=== PATIENT | female | born 1945 | race Caucasian/White ===

== ENCOUNTER 2016-12-10 16:27 | Observation (INO) | payer MEDICARE ==
[~2016-12-10] VITALS: Ht 167.6 cm; Wt 114.6 kg
[~2016-12-10 16:27] MED LIST: HCTZ 25MG TAB25 MG PO; IRON325 MG PO; LEVAQUIN 5500 MG/TA1 PO; LOTENSIN40 MG PO; LUTEIN 15 MG-0.1 SGL PO; MULTIPLE VITAMI1 CAP PO; PREDNISONE20 MG PO; PROAIR HFA0.09 MG/AC IH; PROZAC 20MG20 MG PO; WELLBUTRIN SR150 M1 PO
[2016-12-10 17:17] LABS: BASO % 0.2 % (0.0-2.0); EOS % 0.4 % (0-4.0); GRAN # 8.1 (1.4-6.5); GRAN % 76.5 % (42.2-75.2); HEMATOCRIT 33.9 % (37.0-47.0); HEMOGLOBIN 10.9 g/dl (12.5-16.0); LYMPH # 1.7 (1.2-3.4); LYMPH % 15.8 % (20.0-51.0); MEAN CELL VOLUME 87 fl (80.0-100.0); MEAN CORPUSCULAR HEMOGLOBIN 28 pg (27.0-31.0); MEAN CORPUSCULAR HGB CONC 32 g/dl (33.0-37.0); MEAN PLATELET VOLUME 9.7 fl (7.4-10.4); MONO # 0.7 (0.1-0.6); MONO % 6.4 % (1.7-9.3); PLATELET COUNT 321 K/mm3 (130-400); RED BLOOD COUNT 3.91 M/mm3 (4.10-5.30); REDCELL DISTRIBUTION WIDTH-CV 13.3 % (11.5-14.5); WHITE BLOOD COUNT 10.5 K/mm3 (4.8-10.8)
[2016-12-10 17:27] LABS: ADJUSTED CALCIUM 9.1 mg/dL (8.4-10.2); ALBUMIN 4.3 gm/dL (3.5-5.0); BILIRUBIN,TOTAL 0.6 mg/dL (0.0-1.0); CALCIUM 9.3 mg/dL (8.4-10.2); CREATININE, serum 0.86 mg/dL (0.52-1.25); MAGNESIUM 1.9 mg/dL (1.6-2.3); POTASSIUM 3.8 mmol/L (3.4-5.0); TOTAL PROTEIN 7.6 gm/dL (6.4-8.2)
[2016-12-10] MEDS ORDERED: PROZAC40 MG PO (17:37)
[2016-12-10] MEDS ORDERED: PREDNISONE10 MG PO (17:42)
[2016-12-10] MEDS ORDERED: CIPRO 500MG TA500 MG PO (17:42)
[2016-12-10] MEDS ORDERED: STOOL SOFTENER100 M2 PO (17:43)
[2016-12-10] MEDS ORDERED: MOBIC15 MG PO (17:43)
[2016-12-10] MEDS ORDERED: HCTZ 25MG TAB25 MG PO (17:44)
[2016-12-10 17:48] LABS: TROPONIN-I 0.131 ng/mL (0.000-0.034)
[2016-12-10 18:04] LABS: PH 5 (5-8); SQUAMOUS EPITHELIAL 0-2 /hpf; URINE APPEARANCE Clear; URINE BACTERIA Rare /hpf; URINE BILIRUBIN Negative (NEGATIVE); URINE BLOOD Negative (NEGATIVE); URINE COLOR Yellow; URINE GLUCOSE Negative (NEGATIVE); URINE KETONE Negative (NEGATIVE); URINE RBC 0-2 /hpf; URINE UROBILINOGEN Negative (NEGATIVE); URINE WBC 0-2 /hpf
[2016-12-10 18:25] LABS: ARTERIAL BLD GAS TCO2 CT 27.8; ARTERIAL BLOOD GAS BASE EXCESS 2.7 (-2-2); ARTERIAL BLOOD GAS HCO3 26.7 meq/L (22-26); ARTERIAL BLOOD GAS PO2 96.9 mmHg (80-100); ARTERIAL BLOOD GAS pH 7.46 (7.35-7.45); OXYHEMOGLOBIN 96.4 %
[2016-12-10 18:26] LABS: ALLEN TEST YES; ALLENS TEST RESULT PASS; ATS? YES
[2016-12-10 18:44] VITALS: BP 133/67; PULSE 94; TEMP 97.8
[2016-12-10 19:07] LABS: INR 0.9 (0.8-3.0); PROTHROMBIN TIME 10.3 SECONDS (9.7-12.8)
[2016-12-10 19:09] LABS: PARTIAL THROMBOPLASTIN TIME 29.7 SECONDS (26.0-37.0)
[2016-12-10 19:47] VITALS: BP 138/58; PULSE 91; TEMP 98.7
[2016-12-10 22:29] VITALS: BP 142/66; PULSE 80; TEMP 98.2
[2016-12-11] VITALS (20 sets, daily range): BP systolic 105–156; BP diastolic 62–89; PULSE 69–99; TEMP 97.6–98.5
[2016-12-12] VITALS: BP 136/63; PULSE 74; TEMP 98.5
[2016-12-12 00:25] VITALS: BP 136/63; PULSE 74; TEMP 98.5
[2016-12-12 04:30] VITALS: BP 136/63; PULSE 74; TEMP 98.5
[2016-12-12 07:49] VITALS: BP 139/59; PULSE 92; TEMP 97.5
[2016-12-12 08:27] VITALS: BP 139/59; PULSE 92; TEMP 97.5
[2016-12-13 15:16] LABS: CK total - for Isoenzymes 134 U/L (38 - 176)
== END 2016-12-12 11:16 | disposition home or self-care (01) ==
LOC: COL.ER 16:27 → MEDICAL 18:13
PROVIDERS: Emergency Medicine
DX: J44.1 Chronic obstructive pulmonary disease with (acute) exacerbation (principal); R79.89 Other specified abnormal findings of blood chemistry; F41.9 Anxiety disorder, unspecified; F17.210 Nicotine dependence, cigarettes, uncomplicated; Z99.81 Dependence on supplemental oxygen; Z96.652 Presence of left artificial knee joint; Z66 Do not resuscitate; Z82.49 Family history of ischemic heart disease and other diseases of the circulatory system
CPT/HCPCS: C1760; C1894; G0378; J2930; J3010; J7030; Q9967

== ENCOUNTER 2019-05-11 18:24 | Inpatient (IN) | payer MEDICARE ==
[~2019-05-11] VITALS: Ht 167.6 cm; Wt 97.6 kg
[~2019-05-11 18:24] MED LIST changes: +CIPRO 500MG TA500 MG PO; +MOBIC15 MG PO; +PREDNISONE10 MG PO; +PROZAC40 MG PO; +STOOL SOFTENER100 M2 PO
[2019-05-11 19:01] LABS: BASO % 0.3 % (0.0-2.0); EOS # 0.3 (0.0-0.7); EOS % 2.4 % (0-4.0); GRAN # 8.7 (1.4-6.5); GRAN % 74.2 % (42.2-75.2); HEMATOCRIT 39.7 % (37.0-47.0); HEMOGLOBIN 11.9 g/dl (12.5-16.0); LYMPH % 17.1 % (20.0-51.0); MEAN CELL VOLUME 90 fl (80.0-100.0); MEAN CORPUSCULAR HEMOGLOBIN 27 pg (27.0-31.0); MEAN CORPUSCULAR HGB CONC 30 g/dl (33.0-37.0); MEAN PLATELET VOLUME 9.1 fl (7.4-10.4); MONO # 0.6 (0.1-0.6); MONO % 5.1 % (1.7-9.3); PLATELET COUNT 433 K/mm3 (130-400); RED BLOOD COUNT 4.41 M/mm3 (4.10-5.30); REDCELL DISTRIBUTION WIDTH-CV 13.2 % (11.5-14.5)
[2019-05-11 19:13] LABS: ALANINE AMINOTRANSFERASE 15 U/L (9-52); ALBUMIN 4.1 gm/dL (3.5-5.0); ALKALINE PHOSPHATASE 118 U/L (50-136); ANION GAP 9 mmol/L (7-16); AST,SGOT 29 U/L (15-37); BILIRUBIN,TOTAL 0.4 mg/dL (0.0-1.0); BLOOD UREA NITROGEN 12 mg/dL (7-17); CARBON DIOXIDE 28 mmol/L (22-30); CHLORIDE 101 mmol/L (98-107); CREATININE, serum 0.66 (0.52-1.25); GLUCOSE 138 mg/dL (74-106); POTASSIUM 3.7 mmol/L (3.4-5.0); SODIUM 138 mmol/L (137-145); TOTAL PROTEIN 7.5 gm/dL (6.4-8.2)
[2019-05-11 19:29] LABS: TROPONIN-I < 0.012 ng/mL (0.000-0.035)
--- NOTE | 2019-05-11 23:28 | NUR ---
PT was transported via ER bed accompanied by ERNESTO Valderrama. PT ambulated to unit bed with no mobility issues, very SOA after moving. Wall oxygen connected and placed on 4L NC after disconnecting from O2 tank. PT sitting on side of bed, catching breath. Able to speak in full sentences between breathes. Oriented to POC for the evening, room, and unit policies.
[2019-05-11 23:59] VITALS: O2SAT 92
[2019-05-12] VITALS (622 sets, daily range): BP systolic 123–149; BP diastolic 56–96; PULSE 77–99; TEMP 98–98.4; O2SAT 55–100
[2019-05-12] MEDS ORDERED: ATROVENT I0.2 MG/1 M IH (00:07)
[2019-05-12] MEDS ORDERED: MELATONIN5 M1 PO (00:08)
[2019-05-12 07:03] LABS: BASO % 0.1 % (0.0-2.0); GRAN # 6.4 (1.4-6.5); GRAN % 89.8 % (42.2-75.2); HEMOGLOBIN 10.5 g/dl (12.5-16.0); LYMPH # 0.6 (1.2-3.4); LYMPH % 8.8 % (20.0-51.0); MEAN CELL VOLUME 89 fl (80.0-100.0); MEAN CORPUSCULAR HEMOGLOBIN 27 pg (27.0-31.0); MEAN CORPUSCULAR HGB CONC 31 g/dl (33.0-37.0); MEAN PLATELET VOLUME 9.6 fl (7.4-10.4); MONO % 0.6 % (1.7-9.3); PLATELET COUNT 359 K/mm3 (130-400); RED BLOOD COUNT 3.88 M/mm3 (4.10-5.30); REDCELL DISTRIBUTION WIDTH-CV 13.3 % (11.5-14.5)
[2019-05-12 07:05] LABS: HEMATOCRIT 34.4 % (37.0-47.0)
[2019-05-12 07:06] LABS: CALCIUM 8.8 mg/dL (8.4-10.2); CREATININE, serum 0.6 (0.52-1.25); MAGNESIUM 2.1 mg/dL (1.6-2.3)
--- NOTE | 2019-05-12 07:10 | NUR ---
Bedside report given to ERNESTO Lucas.
--- NOTE | 2019-05-12 09:38 | NUR ---
MD Osbaldo in room
--- NOTE | 2019-05-12 13:36 | NUR ---
Attempted to call report - staff unavailable at this time
--- NOTE | 2019-05-12 14:25 | NUR ---
Pt transported to [place] [id number] at this time - recieved by ERNESTO Ambrocio - pt tolerated transfer well
--- NOTE | 2019-05-12 16:08 | NUR ---
IRAIDA met with the patient to discuss discharge plan. The patient lives in [place] with her , Moody. She states that her had a stroke thirteen years ago and that she is his primary caregiver. She states her niece and neighbor are checking in on him while she is here. She also states that her daughter, Nica Thomas (ph#[phone]), will be coming from [place] tomorrow to help out. She reports independence with ADLs and has a cane, walker, and wheelchair available if needed. She is on 4 liters of continuous oxygen from [facility]. The patient's PCP is Dr. Regan Araujo and she receives her medications from [facility]. She reports no difficulties obtaining her meds. She does states that she does not have prescription coverage and is okay with affording them, as long as she is prescribed generic brands. The patient was interested in completing a DPOA-HC. The patient designated her daughters: Tamera Simon (ph#[phone]) and Nica Thomas. IRAIDA and the patient's RN, Lolly, witnessed the patient's signature. The patient was provided with the original and some copies. SW placed a copy in the patient's chart. The patient plans to return home with her upon discharge. No additional needs at this time.
--- NOTE | 2019-05-12 16:42 | NUR ---
PATIENT CAME TO MEDICAL FROM ICU. PATIENT IS UP IN THE CHAIR AT THIS TIME WITH FRESH ICE WATER GIVEN TO HER. PATIENT HAS NO COMPLAINTS AT THIS TIME. THIS NURSE AND LATRICE WAS INTRDUCED TO THE PATIENT.
--- NOTE | 2019-05-12 17:32 | NUR ---
Patient transferred from ICU to room, was settled in recliner and watching TV. Denies pain. O2 is in place at 4L via NC. Offered water and accepted. Call light and personal items are within reach.
--- NOTE | 2019-05-12 17:33 | NUR ---
PATIENT IS RESTING IN BED AT THIS TIME WAITING FOR DINNER. ANTIBIOTIC GIVEN TO HER WITHOUT DIFFICULTY. NO COMPLAINTS AT THIS TIME.
--- NOTE | 2019-05-12 19:07 | NUR ---
Patient sitting up in recliner eating supper, call light and personal items are within reach.
--- NOTE | 2019-05-12 20:00 | NUR ---
Received report from ERNESTO Ross. Assessment complete. Alert and oriented. Denies any pain or discomfort. states SOB has improved. exp wheezing heard, on 4LO2 NC. INT to LAC and LW intact, flushed, dressing CDI. Tele monitor in place, leads checked. meds administered as ordered. Needs met. Call light within reach.
[2019-05-13 04:00] VITALS: BP 135/59; PULSE 94; TEMP 98.4
--- NOTE | 2019-05-13 05:11 | NUR ---
Pt had an uneventful night. Made no complaints. Meds administered. Needs met. Call light within reach.
--- NOTE | 2019-05-13 07:13 | NUR ---
Report given to ERNESTO Ross.
[2019-05-13 08:51] LABS: HEMOGLOBIN 10.4 g/dl (12.5-16.0); MEAN CELL VOLUME 89 fl (80.0-100.0); MEAN CORPUSCULAR HEMOGLOBIN 27 pg (27.0-31.0); MEAN CORPUSCULAR HGB CONC 31 g/dl (33.0-37.0); MEAN PLATELET VOLUME 9.6 fl (7.4-10.4); PLATELET COUNT 358 K/mm3 (130-400); RED BLOOD COUNT 3.82 M/mm3 (4.10-5.30); REDCELL DISTRIBUTION WIDTH-CV 13.5 % (11.5-14.5)
[2019-05-13 09:02] LABS: CALCIUM 9.4 mg/dL (8.4-10.2); CREATININE, serum 0.61 (0.52-1.25); POTASSIUM 3.7 mmol/L (3.4-5.0)
[2019-05-13 09:03] LABS: HEMATOCRIT 33.8 % (37.0-47.0)
[2019-05-13 09:08] VITALS: BP 128/68; PULSE 99; TEMP 97.7
--- NOTE | 2019-05-13 10:21 | NUR ---
Pt sitting in recliner upon entry, no C/O pain at this time, talkative, shift assessments complete, left Pt call light in reach.
[2019-05-13 11:36] LABS: BAND 4 % (0-10); LYMPHOCYTE 5 % (20.0-51.0); NEUTROPHILS 86 % (42.0-75.2); PLATELET ESTIMATE NORMAL (NORMAL)
[2019-05-13 12:15] VITALS: BP 150/75; PULSE 99; TEMP 98.5
[2019-05-13 16:00] VITALS: BP 172/88; PULSE 103; TEMP 98.2
--- NOTE | 2019-05-13 18:33 | NUR ---
Pt resting in the room today, no C/O pain, VS have remained stable.
[2019-05-13 19:05] VITALS: BP 170/73; PULSE 96; TEMP 98.1
[2019-05-13 23:26] VITALS: BP 149/60; PULSE 79; TEMP 97.9
[2019-05-14 04:08] VITALS: BP 170/68; PULSE 101; TEMP 98.2
--- NOTE | 2019-05-14 05:14 | NUR ---
Pt made no complaints. needs met. meds administered. call light within reach.
--- NOTE | 2019-05-14 06:53 | NUR ---
Report given to ERNESTO Ross.
[2019-05-14 07:50] VITALS: BP 167/77; PULSE 102; TEMP 97.9
--- NOTE | 2019-05-14 09:37 | NUR ---
Pt awake and alert this morning, co C/O pain at this time, shift assessment complete, left Pt call light in reach, bed in lowest position.
[2019-05-14] MEDS ORDERED: DOXYCYCLINE 10100 MG PO (11:27)
[2019-05-14] MEDS ORDERED: OMNICEF 300MG300 MG PO (11:28)
[2019-05-14] MEDS ORDERED: PREDNISONE20 MG PO (11:31)
[2019-05-14] MEDS ORDERED: HCTZ 25MG TAB25 MG PO (11:32)
[2019-05-14 12:41] VITALS: BP 147/75; PULSE 90; TEMP 97.8
--- NOTE | 2019-05-14 16:49 | NUR ---
Pt discharged to home, discussed discharge packet with Pt, answered all questions, escorted Pt to entrance, Pt left with spouse via private transportation.
== END 2019-05-14 16:50 | disposition home or self-care (01) | DRG 193 ==
LOC: COL.ER 18:24 → IMCU 20:34 → MEDICAL 05-12 14:22
PROVIDERS: Emergency Medicine; Physician Assistant; ADMIT Internal Medicine
DX: J18.9 Pneumonia, unspecified organism (principal); J96.21 Acute and chronic respiratory failure with hypoxia; J44.0 Chronic obstructive pulmonary disease with (acute) lower respiratory infection; J44.1 Chronic obstructive pulmonary disease with (acute) exacerbation; E66.9 Obesity, unspecified; F17.210 Nicotine dependence, cigarettes, uncomplicated; Z99.81 Dependence on supplemental oxygen; Z96.652 Presence of left artificial knee joint; Z20.828 Contact with and (suspected) exposure to other viral communicable diseases
CPT/HCPCS: 99223-AI; 99232-AI; A4216; J0456; J0692; J0696; J1650; J1956; J2920; J7030; J7050

== ENCOUNTER 2019-06-05 20:53 | Inpatient (IN) | payer MEDICARE ==
[~2019-06-05] VITALS: Ht 167.6 cm; Wt 105.0 kg
[2019-06-05] VITALS (28 sets, daily range): BP systolic 113; BP diastolic 86; PULSE 97; TEMP 97.5; O2SAT 94–98
[~2019-06-05 20:53] MED LIST changes: +ATROVENT I0.2 MG/1 M IH; +DOXYCYCLINE 10100 MG PO; +MELATONIN5 M1 PO; +OMNICEF 300MG300 MG PO
[2019-06-05 21:27] LABS: ARTERIAL BLD GAS O2 SATURATION 88.8 % (92-100); ARTERIAL BLD GAS TCO2 CT 29.7; ARTERIAL BLOOD GAS BASE EXCESS 0.2 (-2-2); ARTERIAL BLOOD GAS HCO3 27.9 meq/L (22-26); ARTERIAL BLOOD GAS PCO2 59.5 mmHg (35-45); ARTERIAL BLOOD GAS PO2 56.8 mmHg (80-100); ARTERIAL BLOOD GAS pH 7.29 (7.35-7.45)
[2019-06-05 21:47] LABS: BASO # 0.1 (0.0-0.2); BASO % 0.3 % (0.0-2.0); EOS # 0.2 (0.0-0.7); EOS % 0.8 % (0-4.0); GRAN # 15.6 (1.4-6.5); GRAN % 86.6 % (42.2-75.2); HEMATOCRIT 41.1 % (37.0-47.0); HEMOGLOBIN 12.4 g/dl (12.5-16.0); LYMPH # 1.3 (1.2-3.4); LYMPH % 7.2 % (20.0-51.0); MEAN CELL VOLUME 90 fl (80.0-100.0); MEAN CORPUSCULAR HEMOGLOBIN 27 pg (27.0-31.0); MEAN CORPUSCULAR HGB CONC 30 g/dl (33.0-37.0); MEAN PLATELET VOLUME 9.3 fl (7.4-10.4); MONO # 0.8 (0.1-0.6); MONO % 4.4 % (1.7-9.3); PLATELET COUNT 417 K/mm3 (130-400); RED BLOOD COUNT 4.57 M/mm3 (4.10-5.30)
[2019-06-05 21:54] LABS: BILIRUBIN,TOTAL 0.3 mg/dL (0.0-1.0); CALCIUM 8.7 mg/dL (8.4-10.2); CREATININE, serum 0.82 (0.52-1.25); POTASSIUM 3.6 mmol/L (3.4-5.0); TOTAL PROTEIN 7.2 gm/dL (6.4-8.2)
[2019-06-05 22:05] LABS: TROPONIN-I 0.031 ng/mL (0.000-0.035)
[2019-06-05] MEDS ORDERED: VASOTEC 10M10 MG/TAB PO (22:31)
[2019-06-05] MEDS ORDERED: PROZAC 20MG20 MG PO (22:36)
[2019-06-05] MEDS ORDERED: MULTI VITAMINS1 TAB PO (22:37)
--- NOTE | 2019-06-05 23:00 | NUR ---
Arrived to the unit via stretcher. Requesting to urinate. Assisted X 1 up to commode. Tolerated transfer well. Assited into bed and attached to all monitors. VS stable; Levophed currenlty on hold. Pt on BIPAP and tolerating well; will continue to monitor.
[2019-06-05 23:41] LABS: ARTERIAL BLD GAS O2 SATURATION 97.4 % (92-100); ARTERIAL BLD GAS TCO2 CT 27.7; ARTERIAL BLOOD GAS BASE EXCESS -1.9 (-2-2); ARTERIAL BLOOD GAS HCO3 25.9 meq/L (22-26); ARTERIAL BLOOD GAS PCO2 58.9 mmHg (35-45); ARTERIAL BLOOD GAS PO2 103.6 mmHg (80-100); ARTERIAL BLOOD GAS pH 7.26 (7.35-7.45)
[2019-06-06] VITALS (740 sets, daily range): BP systolic 94–128; BP diastolic 52–74; PULSE 70–86; TEMP 97.5–98.8; O2SAT 62–100
--- NOTE | 2019-06-06 00:06 | NUR ---
Dr. Roblero at bedside initiating intubation. Intubation finished at 0020. Started central line placement at 0022. Patient tolerated procedures well; Will continue to monitor.
[2019-06-06 01:50] LABS: CREATININE, serum 0.63 (0.52-1.25); POTASSIUM 3.8 mmol/L (3.4-5.0)
[2019-06-06 02:08] LABS: TROPONIN-I 0.117 ng/mL (0.000-0.035)
[2019-06-06 03:03] LABS: ARTERIAL BLD GAS O2 SATURATION 96.9 % (92-100); ARTERIAL BLD GAS TCO2 CT 27.3; ARTERIAL BLOOD GAS HCO3 25.7 meq/L (22-26); ARTERIAL BLOOD GAS PCO2 51.9 mmHg (35-45); ARTERIAL BLOOD GAS PO2 91.8 mmHg (80-100); ARTERIAL BLOOD GAS pH 7.31 (7.35-7.45)
--- NOTE | 2019-06-06 04:30 | NUR ---
Tolerating ventilator well. Patient awakens easily and able to follow commands appropriately. No concerns at this time.
--- NOTE | 2019-06-06 05:05 | NUR ---
Reported critical troponin to E-care nurse.
--- NOTE | 2019-06-06 05:15 | NUR ---
Received orders per Dr. Markham. See Emar.
[2019-06-06 05:37] LABS: MEAN CELL VOLUME 89 fl (80.0-100.0); MEAN CORPUSCULAR HGB CONC 31 g/dl (33.0-37.0); MEAN PLATELET VOLUME 9.2 fl (7.4-10.4); RED BLOOD COUNT 3.42 M/mm3 (4.10-5.30); REDCELL DISTRIBUTION WIDTH-CV 14.2 % (11.5-14.5)
[2019-06-06 05:37] LABS: ARTERIAL BLD GAS O2 SATURATION 93.7 % (92-100); ARTERIAL BLOOD GAS BASE EXCESS -1.5 (-2-2); ARTERIAL BLOOD GAS HCO3 24.5 meq/L (22-26); ARTERIAL BLOOD GAS PCO2 47.4 mmHg (35-45); ARTERIAL BLOOD GAS PO2 70.3 mmHg (80-100); ARTERIAL BLOOD GAS pH 7.33 (7.35-7.45)
[2019-06-06 05:44] LABS: HEMATOCRIT 30.5 % (37.0-47.0); HEMOGLOBIN 9.3 g/dl (12.5-16.0); MEAN CORPUSCULAR HEMOGLOBIN 27 pg (27.0-31.0); PLATELET COUNT 280 K/mm3 (130-400)
[2019-06-06 05:48] LABS: CALCIUM 7.7 mg/dL (8.4-10.2); CREATININE, serum 0.63 (0.52-1.25); MAGNESIUM 2.1 mg/dL (1.6-2.3); PHOSPHOROUS 3.5 mg/dL (2.5-4.5)
[2019-06-06 05:59] LABS: TROPONIN-I 0.139 ng/mL (0.000-0.035)
[2019-06-06 09:54] LABS: BAND 19 % (0-10); LYMPHOCYTE 8 % (20.0-51.0); NEUTROPHILS 73 % (42.0-75.2); PLATELET ESTIMATE NORMAL (NORMAL)
--- NOTE | 2019-06-06 15:01 | NUR ---
MEAT PROCESSOR student met with the patient to complete initial intake. The patient is intubated but can answer yes and no questions. The patient lives in [place] with her . The patient has oxygen at home at 4L. The patient is independent with ADLs. The patient's PCP is Dr. Araujo and patient receives medications from [facility] pharmacy. The patient does have advanced directives in the EMR and designate her daughters, Tamera or Nica. director patient financial services will continue to follow to ensure a safe discharge. MEAT PROCESSOR student attempted to contact the patient's daughter/DPOA-HC, Tamera (Lisa) to introduce one's self, left message.
--- NOTE | 2019-06-06 19:12 | NUR ---
Pts daughter, Lisa, calls to inform nursing staff that patient may have restarted smoking, as she had found several packs of cigarettes at Alexandria's home.
--- NOTE | 2019-06-06 19:45 | NUR ---
Assessment complete; patient alert and responding appropriately to verbal commands. Patient appears mildy anxious and frequently grabs at staff's hands and clothing when near. Patient is also observed knocking on siderails to get staff's attention. Re-oriented patient and discussed plan of care and medications with patient. Reports mild pain to throat; Increased pain medication at this time.
[2019-06-06 20:13] LABS: ARTERIAL BLD GAS O2 SATURATION 96.5 % (92-100); ARTERIAL BLD GAS TCO2 CT 25.2; ARTERIAL BLOOD GAS BASE EXCESS -1.8 (-2-2); ARTERIAL BLOOD GAS HCO3 23.8 meq/L (22-26); ARTERIAL BLOOD GAS PCO2 44.2 mmHg (35-45); ARTERIAL BLOOD GAS PO2 82.5 mmHg (80-100); ARTERIAL BLOOD GAS pH 7.35 (7.35-7.45)
[2019-06-07] VITALS (633 sets, daily range): BP systolic 94–158; BP diastolic 55–87; PULSE 58–90; TEMP 97.3–98; O2SAT 71–100
--- NOTE | 2019-06-07 02:00 | NUR ---
Tolerating ventilator well. Patient awakens easily on sedation and is able to appropriately follow commands. Will continue to monitor.
[2019-06-07 05:14] LABS: BASO % 0.3 % (0.0-2.0); EOS % 0.1 % (0-4.0); GRAN # 6.5 (1.4-6.5); GRAN % 82.8 % (42.2-75.2); LYMPH # 0.9 (1.2-3.4); LYMPH % 11.4 % (20.0-51.0); MEAN CELL VOLUME 88 fl (80.0-100.0); MEAN CORPUSCULAR HGB CONC 32 g/dl (33.0-37.0); MEAN PLATELET VOLUME 9.3 fl (7.4-10.4); MONO # 0.4 (0.1-0.6); MONO % 5.1 % (1.7-9.3); PLATELET COUNT 247 K/mm3 (130-400); RED BLOOD COUNT 2.99 M/mm3 (4.10-5.30); REDCELL DISTRIBUTION WIDTH-CV 14.6 % (11.5-14.5)
[2019-06-07 05:21] LABS: HEMATOCRIT 26.3 % (37.0-47.0); HEMOGLOBIN 8.3 g/dl (12.5-16.0); MEAN CORPUSCULAR HEMOGLOBIN 28 pg (27.0-31.0)
[2019-06-07 05:24] LABS: BILIRUBIN,TOTAL 0.2 mg/dL (0.0-1.0); CALCIUM 8.2 mg/dL (8.4-10.2); CREATININE, serum 0.75 (0.52-1.25); MAGNESIUM 2.2 mg/dL (1.6-2.3); PHOSPHOROUS 3.7 mg/dL (2.5-4.5); POTASSIUM 3.8 mmol/L (3.4-5.0); TOTAL PROTEIN 5.6 gm/dL (6.4-8.2)
[2019-06-07 06:01] LABS: INR 1.1 (0.8-3.0); PROTHROMBIN TIME 12.4 SECONDS (9.7-12.8)
[2019-06-07 07:07] LABS: ARTERIAL BLOOD GAS BASE EXCESS -1.6 (-2-2); ARTERIAL BLOOD GAS HCO3 22.7 meq/L (22-26); ARTERIAL BLOOD GAS PCO2 36.4 mmHg (35-45); ARTERIAL BLOOD GAS PO2 107.8 mmHg (80-100); ARTERIAL BLOOD GAS pH 7.41 (7.35-7.45)
--- NOTE | 2019-06-07 07:20 | NUR ---
BEDSIDE REPORT RECEIVED FROM ERNESTO SWANN. PATIENT CURRENTLY ON SMART CARE TRIAL. AWAITING DR. MEYERS TO COME SEE PATIENT.
--- NOTE | 2019-06-07 07:35 | NUR ---
Bedside report given to ERNESTO Toney. Patient care transfered.
--- NOTE | 2019-06-07 09:45 | NUR ---
DR. MYEERS IN TO SEE PATIENT. ORDER RECEIVED FOR EXTUBATION
--- NOTE | 2019-06-07 10:00 | NUR ---
PATIENT EXTUBATED AT THIS TIME.
--- NOTE | 2019-06-07 10:14 | NUR ---
pt extubated at 1000. pt tolerated extubation well.
--- NOTE | 2019-06-07 10:30 | NUR ---
PATIENT DOING WELL POST EXTUBATION. SHE IS ON 6 L/MIN OXYMASK. RESTING COMFORTABLY IN BED. WILL CONTINUE TO MONITOR
[2019-06-07 14:03] LABS: ARTERIAL BLD GAS O2 SATURATION 94.3 % (92-100); ARTERIAL BLOOD GAS BASE EXCESS -1.4 (-2-2); ARTERIAL BLOOD GAS HCO3 25.3 meq/L (22-26); ARTERIAL BLOOD GAS PCO2 52.8 mmHg (35-45); ARTERIAL BLOOD GAS PO2 75.7 mmHg (80-100)
--- NOTE | 2019-06-07 15:51 | NUR ---
ADJUNCT ART HISTORY INSTRUCTOR student attended clinical rounds with the team. The patient is extubated and ST was ordered. Will continue to monitor.
--- NOTE | 2019-06-07 17:00 | NUR ---
PATIENT ON BIPAP THROUGH THE AFTER NOON, SHE TOLERATED WELL. SHE C/O NAUSEA AT THIS TIME. HI FLOW NASAL CANNULA PLACED ON PATIENT AND BIPAP REMOVED. SHE VOMITS. 200 CC AND STATES SHE FEELS BETTER.
[2019-06-07 17:51] LABS: ARTERIAL BLD GAS O2 SATURATION 92.2 % (92-100); ARTERIAL BLD GAS TCO2 CT 25.7; ARTERIAL BLOOD GAS BASE EXCESS -1.7 (-2-2); ARTERIAL BLOOD GAS HCO3 24.3 meq/L (22-26); ARTERIAL BLOOD GAS PCO2 46.9 mmHg (35-45); ARTERIAL BLOOD GAS PO2 65.1 mmHg (80-100); ARTERIAL BLOOD GAS pH 7.33 (7.35-7.45)
--- NOTE | 2019-06-07 18:15 | NUR ---
PATIENT HAS 2 MORE EPISODES OF NAUSEA AND VOMITING. PHENERGAN ORDER RECEIVED. AWAITING ITS ARRIVAL FROM PHARMACY
--- NOTE | 2019-06-07 19:00 | NUR ---
PHENERGAN IS ADMINISTERED AND PATIENT HAS NO FURTHER C/O NAUSEA. SHE STARTS TO EAT SUPPER AT THIS TIME. REPORT GIVEN TO ERNESTO NICKERSON.
[2019-06-08] VITALS (388 sets, daily range): BP systolic 108–178; BP diastolic 51–82; PULSE 80–118; TEMP 97.4–98.8; O2SAT 70–100
[2019-06-08 05:22] LABS: BASO % 0.1 % (0.0-2.0); GRAN # 7.6 (1.4-6.5); LYMPH # 0.8 (1.2-3.4); LYMPH % 9.3 % (20.0-51.0); MEAN CELL VOLUME 89 fl (80.0-100.0); MEAN CORPUSCULAR HGB CONC 31 g/dl (33.0-37.0); MEAN PLATELET VOLUME 9.4 fl (7.4-10.4); MONO # 0.4 (0.1-0.6); MONO % 4.8 % (1.7-9.3); PLATELET COUNT 252 K/mm3 (130-400); REDCELL DISTRIBUTION WIDTH-CV 14.5 % (11.5-14.5)
[2019-06-08 05:27] LABS: ARTERIAL BLD GAS O2 SATURATION 97.8 % (92-100); ARTERIAL BLD GAS TCO2 CT 27.4; ARTERIAL BLOOD GAS BASE EXCESS 0.3 (-2-2); ARTERIAL BLOOD GAS PCO2 47.5 mmHg (35-45); ARTERIAL BLOOD GAS PO2 101.8 mmHg (80-100); ARTERIAL BLOOD GAS pH 7.36 (7.35-7.45)
[2019-06-08 05:27] LABS: HEMATOCRIT 27.5 % (37.0-47.0); HEMOGLOBIN 8.5 g/dl (12.5-16.0); MEAN CORPUSCULAR HEMOGLOBIN 27 pg (27.0-31.0)
[2019-06-08 05:30] LABS: PROTHROMBIN TIME 11.1 SECONDS (9.7-12.8)
[2019-06-08 05:32] LABS: ALBUMIN 3.1 gm/dL (3.5-5.0); BILIRUBIN,TOTAL 0.4 mg/dL (0.0-1.0); CALCIUM 8.2 mg/dL (8.4-10.2); CREATININE, serum 0.63 (0.52-1.25); MAGNESIUM 2.1 mg/dL (1.6-2.3); PHOSPHOROUS 3.2 mg/dL (2.5-4.5); POTASSIUM 3.8 mmol/L (3.4-5.0); TOTAL PROTEIN 5.7 gm/dL (6.4-8.2)
--- NOTE | 2019-06-08 09:25 | NUR ---
INTERNAL AFFAIRS COMMANDER student attended clinical rounds with the team. The patient is to transfer to the floor this day. professional services consultant will continue to follow for PT/OT recommendations.
--- NOTE | 2019-06-08 14:00 | NUR ---
Pt arrived into room 307 at this time. She is A/O x4. Her breathing is tachypneic on 4L O2 via NC. Pt reports SOB with exertion. Lungs diminished and expiratory wheeze throughout. Azevedo catheter currently in place, clear yellow urine draining. HR even and regular. To INT's present to RLE, triple lumen subclavian in place to R chest. Pt has no needs at this time. Call light within reach. Will continue to monitor.
--- NOTE | 2019-06-08 15:45 | NUR ---
Azevedo catheter dc'd, pt reporting SOB. RT contacted for breathing treatment. No further needs at this time. Call light within reach.
--- NOTE | 2019-06-08 20:00 | NUR ---
Recieved report from ERNESTO Angulo. Assessment complete. Alert and oriented. Denies any pain or discomfort at this time. Denies SOB. On 4LO2NC. Scheduled meds adminsitered, pt refused pepcid. Pt placed on bipap at HS. Needs met. Triple lumen to rt subclavian intact, flushed, dressing CDI. x2 RF INT intact, flushed, dressing CDI. Call light within reach.
[2019-06-09 00:46] VITALS: BP 145/62; PULSE 85; TEMP 98.3
[2019-06-09 04:14] VITALS: BP 152/96; PULSE 90; TEMP 98.3
--- NOTE | 2019-06-09 05:28 | NUR ---
Pt made no complaints during the night. Pt used bipap half of the night , stating its uncomfortable. 4LO2NC in place. meds administered. Needs met. Call light within reach.
[2019-06-09 06:26] LABS: PROTHROMBIN TIME 12.1 SECONDS (9.7-12.8)
[2019-06-09 06:29] LABS: BASO % 0.3 % (0.0-2.0); EOS # 0.1 (0.0-0.7); EOS % 0.8 % (0-4.0); GRAN # 5.1 (1.4-6.5); GRAN % 67.5 % (42.2-75.2); LYMPH # 1.5 (1.2-3.4); LYMPH % 19.9 % (20.0-51.0); MEAN CELL VOLUME 89 fl (80.0-100.0); MEAN CORPUSCULAR HGB CONC 31 g/dl (33.0-37.0); MONO # 0.8 (0.1-0.6); MONO % 10.7 % (1.7-9.3); PLATELET COUNT 237 K/mm3 (130-400); RED BLOOD COUNT 2.91 M/mm3 (4.10-5.30); REDCELL DISTRIBUTION WIDTH-CV 14.3 % (11.5-14.5)
[2019-06-09 06:35] LABS: CALCIUM 8.3 mg/dL (8.4-10.2); CREATININE, serum 0.58 (0.52-1.25)
[2019-06-09 06:36] LABS: ALBUMIN 2.9 gm/dL (3.5-5.0); BILIRUBIN,TOTAL 0.6 mg/dL (0.0-1.0); MAGNESIUM 2.1 mg/dL (1.6-2.3); TOTAL PROTEIN 5.4 gm/dL (6.4-8.2)
[2019-06-09 06:41] LABS: HEMATOCRIT 25.9 % (37.0-47.0); MEAN CORPUSCULAR HEMOGLOBIN 27 pg (27.0-31.0)
--- NOTE | 2019-06-09 07:14 | NUR ---
Report given to ERNESTO Zhou and ERNESTO Ramos.
[2019-06-09 08:51] VITALS: BP 97/50; PULSE 78; TEMP 98.1
--- NOTE | 2019-06-09 11:15 | NUR ---
REFUSED, PT GOING HOME
--- NOTE | 2019-06-09 11:44 | NUR ---
IRAIDA met with the patient to review discharge plan and to discuss PT's recommendation of home health vs outpatient PT. The patient declined both services. She states that she plans to return home with her and that her daughter will be coming and helping her for a few days. The patient is to discharge back home with her today, 06/09. IRAIDA presented and explained the IM form to the patient. The patient verbalized understanding, signed, and she declined a copy. No additional needs at this time.
[2019-06-09 12:11] VITALS: BP 155/71; PULSE 90; TEMP 98.6
[2019-06-09] MEDS ORDERED: 00186-0372-20 IH (13:16)
[2019-06-09] MEDS ORDERED: RT SPIRIVA18 MCG IH (13:16)
[2019-06-09] MEDS ORDERED: LEVAQUIN 750MG750 M1 PO (13:17)
[2019-06-09] MEDS ORDERED: PREDNISONE10 MG PO (13:19)
[2019-06-09] MEDS ORDERED: NICODERM C21 MG/PATC TD (13:19)
--- NOTE | 2019-06-09 14:04 | NUR ---
Primary nurse was assisted with [id number] patient care by [employer] student Ludwin Kumar and [facility] Alix Alfred RN-.
--- NOTE | 2019-06-09 15:13 | NUR ---
Pt had an uneventful day. Pt report was given this morning by ERNESTO San. Pt assessment completed. Student Nurse assisted with the removal of TLC central line. No adverse reactions, site is clean, dry and covered with gauze and tegaderm. No further concerns at this time. Pt is preparing for discharge with daughter at this time.
== END 2019-06-09 16:22 | disposition home or self-care (01) | DRG 871 ==
LOC: COL.ER 20:53 → ICU 22:12 → MEDICAL 06-08 14:14
PROVIDERS: Emergency Medicine; Internal Medicine Pulmonary Disease; ADMIT Internal Medicine
PROC: 5A1945Z Respiratory Ventilation, 24-96 Consecutive Hours (ICD-10-PCS; principal; 2019-06-06)
PROC: 0BH18EZ Insertion of Endotracheal Airway into Trachea, Via Natural or Artificial Opening Endoscopic (ICD-10-PCS; 2019-06-06)
PROC: 02HV33Z Insertion of Infusion Device into Superior Vena Cava, Percutaneous Approach (ICD-10-PCS; 2019-06-06)
DX: A41.9 Sepsis, unspecified organism (principal); R65.21 Severe sepsis with septic shock; J18.9 Pneumonia, unspecified organism; J96.22 Acute and chronic respiratory failure with hypercapnia; J96.21 Acute and chronic respiratory failure with hypoxia; J44.0 Chronic obstructive pulmonary disease with (acute) lower respiratory infection; Z99.81 Dependence on supplemental oxygen; Z96.652 Presence of left artificial knee joint; F17.210 Nicotine dependence, cigarettes, uncomplicated; D64.9 Anemia, unspecified; E87.6 Hypokalemia; R53.81 Other malaise; J44.9 Chronic obstructive pulmonary disease, unspecified
CPT/HCPCS: 99232-AI; 99233-AI; 99239; A4216; J0330; J0692; J1650; J1720; J1956; J2405; J2543; J2550; J2704; J2930; J3010; J3370; J3475; J7030; J7050; J7060; J7120; J7512

== ENCOUNTER → 2021-08-28 | Outpatient (CLI) | payer MEDICARE ==
[~2021-08-28] MED LIST changes: +00186-0372-20 IH; +ASPIRIN 81M81 MG/TA2 PO; +DALIRESP500 MCG PO; +LASIX 20MG TABL20 MG PO; +LEVAQUIN 750MG750 M1 PO; +LIPITOR 40MG TA40 MG PO; +MULTI VITAMINS1 TAB PO; +NICODERM C21 MG/PATC TD; +PULMICORT0.5 MG/2 M IH; +RT SPIRIVA18 MCG IH; +VASOTEC 10M10 MG/TAB PO
== END ==
LOC: COL.VAS 13:33
DX: J44.9 Chronic obstructive pulmonary disease, unspecified (principal); I51.7 Cardiomegaly; R91.1 Solitary pulmonary nodule; J96.90 Respiratory failure, unspecified, unspecified whether with hypoxia or hypercapnia

== ENCOUNTER → 2021-09-09 | Outpatient (CLI) | payer MEDICARE ==
[2021-09-09 11:01] LABS: ARTERIAL BLD GAS O2 SATURATION 97.6 % (92-100); ARTERIAL BLD GAS TCO2 CT 26.1; ARTERIAL BLOOD GAS BASE EXCESS -1.7 (-2-2); ARTERIAL BLOOD GAS HCO3 24.6 meq/L (22-26); ARTERIAL BLOOD GAS PCO2 48.4 mmHg (35-45); ARTERIAL BLOOD GAS PO2 107.9 mmHg (80-100); ARTERIAL BLOOD GAS pH 7.32 (7.35-7.45)
== END ==
LOC: COL.PUL 10:36
PROVIDERS: Internal Medicine Pulmonary Disease
DX: R91.1 Solitary pulmonary nodule (principal); I27.20 Pulmonary hypertension, unspecified

== ENCOUNTER 2021-10-12 04:13 | Emergency (ER) | payer MEDICARE ==
[~2021-10-12] VITALS: Ht 167.6 cm; Wt 120.5 kg
[2021-10-12 04:28] LABS: BASO # 0.1 K/mm3 (0.0-0.2); BASO % 0.5 % (0.0-2.0); EOS # 0.2 K/mm3 (0.0-0.7); EOS % 1.4 % (0.0-4.0); GRAN # 8.9 K/mm3 (1.4-6.5); LYMPH # 1.1 K/mm3 (1.2-3.4); LYMPH % 9.6 % (20.0-51.0); MEAN CELL VOLUME 82 fl (80.0-100.0); MEAN PLATELET VOLUME 9.3 fl (7.4-10.4); MONO # 0.9 K/mm3 (0.1-0.6); MONO % 7.9 % (1.7-9.3); PLATELET COUNT 457 K/mm3 (130-400); REDCELL DISTRIBUTION WIDTH-CV 14.2 % (11.5-14.5)
[2021-10-12 04:36] LABS: HEMATOCRIT 30.5 % (37.0-47.0); HEMOGLOBIN 9.1 g/dl (12.5-16.0); MEAN CORPUSCULAR HEMOGLOBIN 25 pg (27-31)
[2021-10-12 04:48] LABS: ALANINE AMINOTRANSFERASE 14 U/L (0-55); ALKALINE PHOSPHATASE 113 U/L (40-150); ANION GAP 15 mmol/L (7-16); AST,SGOT 20 U/L (5-34); BILIRUBIN,TOTAL 0.4 mg/dL (0.2-1.2); BLOOD UREA NITROGEN 15 mg/dL (10-20); CALCIUM 8.8 mg/dL (8.4-10.2); CARBON DIOXIDE 21 mmol/L (23-31); CHLORIDE 104 mmol/L (98-107); CREATININE, serum 0.81 mg/dL (0.57-1.11); GLUCOSE 139 mg/dL (70-99); POTASSIUM 4.3 mmol/L (3.5-4.5); SODIUM 140 mmol/L (136-145); TOTAL PROTEIN 7.3 gm/dL (6.2-8.1)
[2021-10-12 04:50] LABS: MEAN CORPUSCULAR HGB CONC 30 g/dl (33.0-37.0)
[2021-10-12 05:10] LABS: COLLECTION METHOD CLEAN CATCH
[2021-10-12 05:22] LABS: MUCOUS Present (NOT PRESENT); PH 5 (5-8); SQUAMOUS EPITHELIAL 0-2 /hpf (0-10); URINE APPEARANCE Hazy (CLEAR/HAZY); URINE BACTERIA Rare /hpf (NONE SEEN); URINE BILIRUBIN Negative (NEGATIVE); URINE BLOOD Negative (NEGATIVE); URINE COLOR Yellow (YELLOW); URINE GLUCOSE Negative (NEGATIVE); URINE KETONE Negative (NEGATIVE); URINE LEUKOCYTE ESTERASE Negative (NEGATIVE); URINE NITRATE Negative (NEGATIVE); URINE PROTEIN(semi-quant) 1+ (NEGATIVE); URINE RBC 0-2 /hpf (0-2); URINE UROBILINOGEN Negative (NEGATIVE)
[2021-10-12 05:24] LABS: LIPASE 9 U/L (8-78); TROPONIN-I < 0.010 ng/mL (0.00-0.033)
[2021-10-12] MEDS ORDERED: NORCO 325 MG-51 TAB PO (07:00)
[2021-10-12 07:36] VITALS: BP 123/59; PULSE 77; TEMP 97.8
== END 2021-10-12 07:46 | disposition home or self-care (01) ==
LOC: COL.ER 04:13
PROVIDERS: Emergency Medicine
DX: R18.8 Other ascites (principal); J44.9 Chronic obstructive pulmonary disease, unspecified; Z99.81 Dependence on supplemental oxygen; Z72.0 Tobacco use
CPT/HCPCS: J2270; J2405; Q9967

== ENCOUNTER → 2021-10-23 | Outpatient (CLI) | payer MEDICARE ==
[~2021-10-23] VITALS: Ht 167.6 cm; Wt 125.8 kg
[~2021-10-23] MED LIST changes: +BROVANA15 MCG/2 M IH; +GLUCOPHAGE500 MG/TAB PO; +NORCO 325 MG-51 TAB PO
[2021-10-23 12:24] VITALS: BP 135/61; PULSE 82; TEMP 98.2
[2021-10-23 13:35] VITALS: BP 109/62; PULSE 84
== END ==
LOC: COL.RAD 11:51
DX: R18.8 Other ascites (principal)
CPT/HCPCS: 19804

== ENCOUNTER → 2021-10-31 | Outpatient (CLI) | payer MEDICARE ==
[~2021-10-31] MED LIST changes: +ASPIRIN E.C. 8181 MG PO
[2021-10-31 12:15] VITALS: BP 105/71; PULSE 109; TEMP 98.5
[2021-10-31 13:30] VITALS: BP 109/70; PULSE 100
[2021-10-31 13:55] LABS: PERITONEAL -POLYMORPHONUCLEAR 10.5 % (0-25)
== END ==
LOC: COL.RAD 12:00
PROVIDERS: Family Medicine
DX: K74.60 Unspecified cirrhosis of liver (principal); R18.8 Other ascites
CPT/HCPCS: 19804

== ENCOUNTER 2021-11-12 12:42 | Day surgery (SDC) | payer MEDICARE ==
[~2021-11-12] VITALS: Ht 167.6 cm; Wt 118.2 kg
[2021-11-12 13:12] VITALS: BP 149/76; PULSE 99; TEMP 97.1
[2021-11-12] MEDS ORDERED: LASIX 80MG TABL80 MG PO (13:19)
[2021-11-12] MEDS ORDERED: ALDACTONE50 MG PO (13:19)
[2021-11-12] MEDS ORDERED: MIRALAX PA17 GM/Dose PO (13:20)
[2021-11-12] MEDS ORDERED: NORCO 325 MG-51 TAB PO (13:20)
[2021-11-12] MEDS ORDERED: ALEVE 220MG220 MG PO (13:21)
[2021-11-12] MEDS ORDERED: TYLENOL 500MG500 MG PO (13:21)
[2021-11-12] MEDS ORDERED: GAS RELIEF125 MG PO (13:21)
[2021-11-12 16:55] VITALS: BP 120/70; PULSE 85
--- NOTE | 2021-11-12 16:55 | NUR ---
Patient returns to bay 3 per cart after having EGD/colonoscopy. Patient had paracentesis prior to procedures in radiology. Bandaid dry on the abdomen. IV fluids infusing. Resting on cart. On oxygen at 4L per nasal cannula. Call light in reach and siderails up x2. Daughter in room.
[2021-11-12 17:10] VITALS: BP 134/78; PULSE 80
--- NOTE | 2021-11-12 17:10 | NUR ---
Continues to rest on cart. Denies pain or nausea.
--- NOTE | 2021-11-12 17:15 | NUR ---
Dr. Moody here and talks with the patient and daughter. All questions answered.
[2021-11-12 17:25] VITALS: BP 139/87; PULSE 75
--- NOTE | 2021-11-12 17:25 | NUR ---
Sitting on the egde of the bed. IV discontinued and site is free of redness. Assisted with dressing. Tolerates activity.
--- NOTE | 2021-11-12 17:35 | NUR ---
Ambulatory to bathroom on oxygen at 4L per nasal cannula. Tolerates activity. Returns to room and given dismissal instructions. Voices understanding of these.
--- NOTE | 2021-11-12 17:45 | NUR ---
Assisted into wheelchair with oxygen on at 4L per nasal cannula and taken to the front doors and assisted into private vehicle driven by daughter with instructions in hand.
[2021-11-20] MEDS ORDERED: NORCO 325 MG-51 TAB PO (12:35)
== END 2021-11-12 17:45 | disposition home or self-care (01) ==
LOC: SDCO 12:42
DX: K29.50 Unspecified chronic gastritis without bleeding (principal); K63.5 Polyp of colon; Z87.891 Personal history of nicotine dependence; R18.8 Other ascites; K59.00 Constipation, unspecified; D50.0 Iron deficiency anemia secondary to blood loss (chronic); G47.33 Obstructive sleep apnea (adult) (pediatric); Z99.81 Dependence on supplemental oxygen; Z79.899 Other long term (current) drug therapy
CPT/HCPCS: J2704; J7120

== ENCOUNTER → 2021-11-20 | Outpatient (CLI) | payer MEDICARE ==
[~2021-11-20] VITALS: Ht 167.6 cm; Wt 115.8 kg
[~2021-11-20] MED LIST changes: +ALDACTONE50 MG PO; +ALEVE 220MG220 MG PO; +GAS RELIEF125 MG PO; +LASIX 80MG TABL80 MG PO; +MIRALAX PA17 GM/Dose PO; +NATURAL IRON65 MG PO; +OXYGEN NASAL.CANN; +TYLENOL 500MG500 MG PO; +VITAMIN C500 MG PO
[2021-11-20 12:41] VITALS: BP 97/67; PULSE 86; TEMP 98.3
--- NOTE | 2021-11-20 13:20 | NUR ---
Not enough fluid to drain. Pt returned to holding area. Pt out to waiting room in admissions to await daughter to pick her up. Denies complaints at this time.
== END ==
LOC: COL.RAD 12:00
DX: R18.8 Other ascites (principal)

== ENCOUNTER 2021-11-28 10:23 | Day surgery (SDC) | payer MEDICARE ==
[~2021-11-28] VITALS: Ht 167.6 cm; Wt 114.6 kg
[~2021-11-28 10:23] MED LIST changes: -NATURAL IRON65 MG PO; -OXYGEN NASAL.CANN; -VITAMIN C500 MG PO
[2021-11-28] MEDS ORDERED: NATURAL IRON65 MG PO (11:17)
[2021-11-28] MEDS ORDERED: ASPIRIN E.C. 8181 MG PO (11:17)
[2021-11-28] MEDS ORDERED: VITAMIN C500 MG PO (11:18)
[2021-11-28] MEDS ORDERED: OXYGEN NASAL.CANN (11:19)
[2021-11-28 11:32] VITALS: BP 146/77; PULSE 95; TEMP 98.1
[2021-11-28 14:30] VITALS: BP 126/50; PULSE 81
--- NOTE | 2021-11-28 14:30 | NUR ---
PATIENT RETURNS TO ROOM 6 PER CART FROM SURGERY ACCOMPANIED BY BURAK OROZCO AND AMADOR THOMPSON. PATIENT IS AWAKE AND ALERT. ON OXYGEN AT 4L PER NASAL. IV FLUIDS INFUSING. SIDERAILS UP X2 AND CALL LIGHT IN REACH. DRESSING COVERING RIGHT PORT A CATHETER CLEAN AND DRY. BANDAID ON NECK. SIDERAILS UP X2 AND CALL LIGHT IN REACH.
[2021-11-28] MEDS ORDERED: NORCO 325 MG-51 TAB PO (14:34)
[2021-11-28 14:45] VITALS: BP 131/60; PULSE 78
--- NOTE | 2021-11-28 14:45 | NUR ---
DRINKING DIET PEPSI. DENIES PAIN OR NAUSEA.
[2021-11-28 15:00] VITALS: BP 109/75; PULSE 77
--- NOTE | 2021-11-28 15:00 | NUR ---
TOLERATES PEPSI. CONTINUES TO DENY PAIN. DRESSING DRY ON THE RIGHT PORT A CATHETER SITE.
[2021-11-28 15:15] VITALS: BP 129/56; PULSE 76
--- NOTE | 2021-11-28 15:15 | NUR ---
DISCHARGE INSTRUCTIONS GIVEN AND VOICES UNDERSTANDING OF THESE. PROVIDED PORT A CATHETER INFORMATION PACKET.
--- NOTE | 2021-11-28 15:17 | NUR ---
IV DISCONTINUED AND SITE IS FREE OF REDNESS. DRESSED AND READY FOR DISCHARGE.
--- NOTE | 2021-11-28 15:23 | NUR ---
PATIENT DISMISSED TO HOME DRIVEN BY DAUGHTER AND TAKEN TO THE VEHICLE PER WHEELCHAIR AND ASSISTED INTO VEHICLE WITH DISMISSAL INSTRUCTIONS IN HAND.
== END 2021-11-28 15:23 | disposition home or self-care (01) ==
LOC: SDCO 10:23 → EDSTATUS 12:00 → COL.RAD 12:00 → SDCO 12:00
DX: C78.6 Secondary malignant neoplasm of retroperitoneum and peritoneum (principal); R18.0 Malignant ascites; C80.1 Malignant (primary) neoplasm, unspecified; Z79.899 Other long term (current) drug therapy; Z87.891 Personal history of nicotine dependence
CPT/HCPCS: C1788; J0690; J1644; J2704; J3010; J7120

== ENCOUNTER 2021-12-19 09:00 | Outpatient (RCR) | payer MEDICARE ==
[2021-12-19] VITALS (11 sets, daily range): BP systolic 85–122; BP diastolic 50–96; PULSE 78–92; TEMP 97.9–98.9
[~2021-12-19] VITALS: Ht 167.6 cm; Wt 108.9 kg
[~2021-12-19 09:00] MED LIST changes: +NATURAL IRON65 MG PO; +OXYGEN NASAL.CANN; +VITAMIN C500 MG PO
== END 2021-12-19 15:30 | disposition home or self-care (01) ==
LOC: EUO
DX: R18.0 Malignant ascites (principal)
CPT/HCPCS: J1644; J7050; P9016

== ENCOUNTER 2022-06-01 07:52 | Outpatient (RCR) | payer MEDICARE ==
[2022-06-01] VITALS (9 sets, daily range): BP systolic 97–130; BP diastolic 57–73; PULSE 82–92; TEMP 97.8–98.3
[~2022-06-01 07:52] MED LIST changes: +ALDACTONE 25MG25 M1 PO; +AMOXICILLIN 8751 TAB PO; +COMPAZINE 110 MG/TAB PO; +IPRATROPIUM BROM3 M1; +LASIX 40MG TABL40 MG PO; +PROVENTIL0.09 MG/A1 IH; +ROXICODONE 55 MG/TAB PO; +VALTREX1 GM PO
--- NOTE | 2022-06-01 09:45 | NUR ---
Pt assisted to restroom with standby assist, then is assisted from restroom by wheelchair due to shortness of air. She is moved to rm 17 for her comfort. Warm blankets provided and personal belongings moved to room. Call light in reach, she denies further needs at this time.
[2022-06-01] MEDS ORDERED: LIPITOR 40MG TA40 MG PO (10:33)
[2022-06-01] MEDS ORDERED: GLUCOPHAGE XR500 M1 PO (10:33)
== END 2022-06-01 15:42 ==
LOC: EUO 07:52
DX: R18.0 Malignant ascites (principal)
CPT/HCPCS: J1644; J7050; P9016

== ENCOUNTER 2023-09-12 00:56 | Inpatient (IN) | payer MEDICARE ==
[~2023-09-12 00:56] MED LIST changes: +00186-0370-20 IH; +ALTACE 2.5MG T2.5 MG PO; +DOXYCYCLINE HY100 MG PO; +GLUCOPHAGE XR500 M1 PO; +GLUCOSE TEST ST1 DEV MC; +IPRATROPIUM BROM3 M1 IH; +LANCETS MC; +LYNPARZA150 MG PO; +MAG-OX 400400 MG/TAB PO; +PRILOSEC 20MG20 MG PO; +PROFE180 MG PO; +VITAMIN D31000 I1 PO
== END 2023-09-16 14:00 | DRG 189 ==
LOC: COL.ER 00:56 → ICU 03:35 → SURG 09-14 11:45
PROVIDERS: ADMIT Internal Medicine
DX: J96.21 Acute and chronic respiratory failure with hypoxia (principal); G93.41 Metabolic encephalopathy; J44.1 Chronic obstructive pulmonary disease with (acute) exacerbation; E87.3 Alkalosis; J96.22 Acute and chronic respiratory failure with hypercapnia; E78.5 Hyperlipidemia, unspecified; R73.9 Hyperglycemia, unspecified; T38.0X5A Adverse effect of glucocorticoids and synthetic analogues, initial encounter; I95.9 Hypotension, unspecified; Z85.43 Personal history of malignant neoplasm of ovary; Z99.81 Dependence on supplemental oxygen